=== PATIENT | female | born 1975 | race Caucasian/White ===

== ENCOUNTER 2018-11-28 07:29 | Inpatient (IN) | payer MEDICAID ==
[~2018-11-28] VITALS: Ht 154.9 cm; Wt 51.7 kg
[2018-11-28 07:34] VITALS: BP 146/94
[2018-11-28] MEDS ORDERED: METF500T PO (07:38)
--- NOTE | 2018-11-28 07:40 | NUR ---
Patient ambulated to bed 6. RN evaluating patient at bedside.
[2018-11-28] MEDS ORDERED: NACL 0.9% 1,000 ML IV SCH (08:01)
[2018-11-28] MEDS ORDERED: NACL 0.9% 1,000 ML IV ONE (08:01)
[2018-11-28] MEDS ORDERED: ONDANSETRON 4 MG/2 ML VIAL IVP ONE (08:05)
[2018-11-28] MEDS ORDERED: DICYCLOMINE HCL LIQUID 10 MG/5 ML UDC PO ONE (08:05)
[2018-11-28] MEDS ORDERED: MORPHINE SULFATE 4 MG/ML SYR IVP ONE (08:05)
[2018-11-28] MEDS ORDERED: KETOROLAC 30 MG/ML VIAL IVP ONE (08:05)
[2018-11-28 08:23] LABS: APPEARANCE,URINE CLEAR (CLEAR); BILIRUBIN,URINE NEGATIVE (NEGATIVE); BLOOD, URINE NEGATIVE (NEGATIVE); COLOR,URINE YELLOW (YELLOW); LEUKOCYTE ESTERASE ,URINE NEGATIVE (NEGATIVE); NITRITE, URINE NEGATIVE (NEGATIVE); UGLUCOSE 3+ (NEGATIVE)
[2018-11-28 08:29] LABS: BARBITURATE, URINE NEG. ng/ml (NEG <=200); BENZODIAZEPINE, URINE NEG. ng/mL (NEG <=200); CANNABINOID, URINE NEG. ng/mL (NEG <=50); COCAINE, URINE NEG. ng/mL (NEG <=300); OPIATE, URINE NEG. ng/mL (NEG <=2000); PHENCYCLIDINE SCREEN,URINE NEG. ng/mL (NEG <=25)
--- NOTE | 2018-11-28 08:30 | NUR ---
C/O ABD PAIN SINCE 05:00 THIS MORNING. PT REPORTS LOWER ABD PAIN AT 10/10 THAT RADIATES TO RT LOWER BACK. + N/V. PT APPEARS LETHARGIC AND TIRED. TAKES METFORMIN AT HOME FOR DM. PUT THE PT IN COMFORTABLE POSITION IN BED. SIDE RAILS UPX2. BED AT LOWER POSITION. WILL CONTINUE TO MONITOR PT. MEDHX:DM RX:DENIES
[2018-11-28 08:40] LABS: RBC,URINE 0-5 /HPF (0-5); WBC,URINE 0-5 /HPF (0-5)
--- NOTE | 2018-11-28 08:45 | NUR ---
PT MEDICATED WITH PAIN MEDS. PT HOOKED ON MONITOR. WILL CONTINUE TO MONITOR PT.
[2018-11-28 08:57] LABS: ALBUMIN 3.7 g/dL (3.4-5.0); ANION GAP 16.3 (8-16); CARBON DIOXIDE 25.7 mmol/L (21-32); TOTAL BILIRUBIN 0.5 mg/dL (0.0-1.0)
[2018-11-28 09:02] LABS: HEMATOCRIT 43.7 % (36-48); HEMOGLOBIN 14.6 g/dL (12.0-16.0); MEAN CORPUSCULAR HEMOGLOBIN 27 pg (27-31); MEAN CORPUSCULAR HGB CONC 33 g/dL (33-37); MEAN CORPUSCULAR VOLUME 82.1 fL (80-94); PLATELET COUNT (AUTO) 317 K/uL (140-450); RED BLOOD CELL COUNT(AUTO) 5.32 MIL/uL (4.20-5.40); RED CELL DISTRIBUTION WIDTH 12.8 % (11.6-13.7)
[2018-11-28 09:33] LABS: LYMPHOCYTES % (MANUAL) 6 % (20-46)
--- NOTE | 2018-11-28 10:08 | NUR ---
Dr. Wadsworth evaluating patient at bedside.
--- NOTE | 2018-11-28 10:28 | NUR ---
PT SLEEPING COMFORTABLY IN HER BED. DENIES ANY PAIN AT THIS TIME.
[2018-11-28] MEDS: NACL 0.9% 1,000 ML IV SCH ×2 (10:52→18:49)
[2018-11-28] MEDS ORDERED: ONDANSETRON 4 MG/2 ML VIAL IM/IVP PRN (10:55)
[2018-11-28] MEDS ORDERED: DOCUSATE SODIUM 100 MG GELCAP PO PRN (10:55)
[2018-11-28] MEDS ORDERED: HYDROcodone/APAP 7.5/325 MG 1 TAB PO PRN (10:55)
[2018-11-28] MEDS ORDERED: MORPHINE SULFATE 2 MG/ML SYR IVP PRN (10:55)
[2018-11-28] MEDS ORDERED: DEXTROSE 50% 50 ML SYR IVP PRN ×2 (11:05→12:10)
[2018-11-28] MEDS ORDERED: INSULIN LISPRO SLIDING SCALE 100 UNITS/ML VIAL SUBQ PRN (11:05)
[2018-11-28] MEDS ORDERED: INSULIN REGULAR, HUMAN 100 UNIT/ML VIAL IVP ONE (11:20)
[2018-11-28] MEDS ORDERED: LEVOFLOXACIN 500 MG/D5W PREMIX 100 ML IV ONE (11:20)
[2018-11-28] MEDS ORDERED: BLOOD GLUCOSE MONITORING 1 DEV DEV FS SCH (11:30)
[2018-11-28 12:10] VITALS: BP 106/68
--- NOTE | 2018-11-28 12:10 | NUR ---
Patient will be admitted to care of DR. PIERRE. Admited to [facility] . Will go to room 121 A. Belongings list completed. Report to MARV PUENTE. PT STABLE AT THE TIME OF TRANSFER.
--- NOTE | 2018-11-28 12:10 | NUR ---
PATIENT ARRIVED TO UNIT VIA GURNEY, AMBULATED TO BED WITH STEADY GAIT BUT IS WEAK FROM PAIN. IV INFUSION RUNNING WELL TO LEFT AC 22 GAUGE. PATIENT STATES PAIN IS TOLERABLE AND THAT IT ONLY HURTS WHEN SHE MOVES. ORIENTED PATIENT TO UNIT AND FLOOR. CALL LIGHT IN REACH. PATIENT VITALS STABLE ON RA. NO SIGNS OF DISTRESS .SAFETY PRECAUTIONS IN PLACE .WILL CONTINUE TO MONITOR.
[2018-11-28] MEDS ORDERED: KETOROLAC 15 MG/ML VIAL IVP PRN (12:15)
[2018-11-28 12:56] LABS: PROTHROMBIN TIME 9.9 secs (10.8-13.4)
[2018-11-28 13:16] LABS: CHOL/HDL RATIO 4.2 (1-4.5); MAGNESIUM 1.9 mg/dL (1.8-2.4); PHOSPHORUS 3.7 mg/dL (2.5-4.9); THYROID STIMULATING HORMONE 0.98 uIU/mL (0.34-3.74)
[2018-11-28] MEDS ORDERED: POTASSIUM CHLORIDE 40 MEQ, LIDOCAINE MPF 1% - 5 mL VIAL 25 MG in NACL 0.9% 250 ML IV SCH (14:00)
[2018-11-28] MEDS: INSULIN LISPRO SLIDING SCALE 100 UNITS/ML VIAL SUBQ PRN ×3 (14:04→21:02)
--- NOTE | 2018-11-28 14:06 | NUR ---
ADMINISTERED SCHEDULED MEDICATIONS, BUT HELD HUMULIN R IVP WHICH WE DO NOT CARRY ON THE FLOOR. DOCTOR AWARE. PER DR. PEOPLES. RECHECK GLUCOSE AND COVER WITH SLIDING SCALE HUMALOG SQ. ADMINISTERED 8 UNITS OF HUMALOG FOR GLUCOSE OF 339. PATIENT TOLERATED WELL. IV INFUSING WELL TO LEFT AC.
--- NOTE | 2018-11-28 14:38 | NUR ---
ADMINISTERED SCHEDULED MEDICATIONS. PATIENT TOLERATING WELL.
[2018-11-28 15:06] LABS: ANION GAP 13.9 (8-16); CARBON DIOXIDE 26.5 mmol/L (21-32); POTASSIUM 3.4 mmol/L (3.5-5.1)
[2018-11-28] MEDS: BLOOD GLUCOSE MONITORING 1 DEV DEV FS SCH ×2 (16:30→20:57)
--- NOTE | 2018-11-28 16:40 | NUR ---
VITALS STABLE, PATIENT RESTING, NO C/O PAIN AT THIS TIME. WILL CONTINUE TO MONITOR.
[2018-11-28 18:00] VITALS: BP 115/83
[2018-11-28] MEDS: ACETAMINOPHEN 325 MG TAB PO PRN (18:09)
[2018-11-28] MEDS: KETOROLAC 15 MG/ML VIAL IM SCH (18:09)
--- NOTE | 2018-11-28 18:09 | NUR ---
ADMINISTERED PRN ZOFRAN 4MG IV, FOR C/O NAUSEA, TYLENOL 650MG PO FOR FEVER OF 100.4 F AN C/O HEADACHE 09/21, AND TORADOL 15MG IV FOR C/O FLANK PAIN 10/22. PATIENT HAS CHILLS. EDUCATED PATIENT THAT CHILLS WILL SUBSIDE ONCE FEVER IS REDUCED.
--- NOTE | 2018-11-28 19:09 | NUR ---
PAIN, FEVER, CHILLS AND NAUSEA HAVE ALL SUBSIDED. PATIENT COMFORTABLE, RESTING IN BED. FAMILY AT BEDSIDE.
--- NOTE | 2018-11-28 19:29 | NUR ---
GAVE REPORT TO WARP HANGER RNALLI. PATIENT IN STABLE CONDITION.
--- NOTE | 2018-11-28 19:30 | NUR ---
RECIEVED PT AAOX4 NID , WITH BEARABLE PAIN AT THIS TIME , IV SITE INTACT AND PATENT , PLAN OF CARE DISCUSSED AND VERBALIZE UNDERSTANDING , CALL LIGHT WITHIN RFEACH , BED I N LOW POSITION , SIDERAILS UPX2 ,REALTIVES TA BEDSIDE.
--- NOTE | 2018-11-28 22:00 | NUR ---
MADE ROUNDS , RESPIRATION EVEN AND UNLABORED , NO FURTHER COMPLAIN MADE AT THIS TIME , CALL LIGHT WITHIN REACH .WILL CONT. TO MONITOR.
--- NOTE | 2018-11-29 | NUR ---
MADE ROUNDS , RESPIRATION EVEN AND UNLABORED , NO COMPLAIN MADE AT THIS TIME , CALL LIGHT WITHIN REACH , WILL CONT. TO MONITOR.
[2018-11-29] MEDS: NACL 0.9% 1,000 ML IV SCH ×4 (00:41→23:42)
[2018-11-29 00:59] VITALS: BP 128/69
[2018-11-29] MEDS: KETOROLAC 15 MG/ML VIAL IM SCH ×2 (03:24→09:11)
--- NOTE | 2018-11-29 04:00 | NUR ---
MADE ROUNDS . V/S WNL , RESPIRATION EVEN AND UNLABORED , NO COMPLAIN MADE AT THIS TIME , CALL LIGHT WITHIN RAECH . WILL CONT. TO MONITOR.
[2018-11-29 04:14] VITALS: BP 130/70
[2018-11-29 06:07] LABS: T4 (THYROXINE) 10.2 ug/dL (4.5-12.0)
[2018-11-29] MEDS: BLOOD GLUCOSE MONITORING 1 DEV DEV FS SCH ×4 (06:46→20:37)
[2018-11-29] MEDS: INSULIN LISPRO SLIDING SCALE 100 UNITS/ML VIAL SUBQ PRN ×3 (06:51→17:50)
[2018-11-29 06:54] LABS: ANION GAP 14.5 (8-16); CARBON DIOXIDE 22.2 mmol/L (21-32); CREATININE 0.8 mg/dL (0.6-1.3); POTASSIUM 3.7 mmol/L (3.5-5.1)
[2018-11-29 07:06] LABS: MAGNESIUM 1.7 mg/dL (1.8-2.4); PHOSPHORUS 2.5 mg/dL (2.5-4.9)
--- NOTE | 2018-11-29 07:11 | NUR ---
ENDORSED TO AM SHIFT NURSE WITH STABLE CONDITION
--- NOTE | 2018-11-29 07:12 | NUR ---
RECEIVED REPORT FROM SUPERINTENDENT CEMETERY RN, ALLI. PATIENT IS SLEEPING. VISIBLE CHEST RISE AND NO SIGNS OF DISTRESS ON RA. IV INFUSING TO LEFT AC 20 GAUGE CATHETER. BED LOW, CALL LIGHT IN REACH. WILL CONTINUE TO MONITOR.
[2018-11-29 07:27] LABS: HEMATOCRIT 32.7 % (36-48); MEAN CORPUSCULAR HEMOGLOBIN 27 pg (27-31); MEAN CORPUSCULAR HGB CONC 33 g/dL (33-37); MEAN CORPUSCULAR VOLUME 82.2 fL (80-94); PLATELET COUNT (AUTO) 226 K/uL (140-450); RED BLOOD CELL COUNT(AUTO) 3.98 MIL/uL (4.20-5.40); RED CELL DISTRIBUTION WIDTH 12.7 % (11.6-13.7); WHITE BLOOD COUNT (AUTO) 18.1 K/uL (4.8-10.8)
[2018-11-29 08:00] VITALS: BP 87/59
--- NOTE | 2018-11-29 08:27 | NUR ---
BP SLIGHTLY LOW 87/58 BUT PATIENT DENIES DIZZINESS, LIGHTHEADEDNESS OR HEADACHE. EDUCATED PATIENT TO SIT AT EDGE OF BED BEFORE AMBULATING AND TO CALL ME IF SHE EXPERIENCES ANY DIZZINESS OR LIGHTHEADEDNESS. PATIENT VERBALIZED UNDERSTANDING. ALL OTHER VITALS ARE WNL. REVIEWED MORNING MEDICATIONS INCLUDING IM TORADOL. PATIENT DOES HAVE MILD 3/10 LOWER ABD PAIN, BUT DOES NOT WANT THE IM TORADOL. WILL GIVE THE PRN IV TORADOL AND INFORM DOCTOR OF PATIENT PREFERENCE.
--- NOTE | 2018-11-29 09:03 | NUR ---
PATIENT HAS BEEN SCREENED AND CATEGORIZED MODERATE NUTRITION RISK. PATIENT WILL BE SEEN WITHIN 3-5 DAYS OF ADMISSION. 12/01/18 12/03/[address]
[2018-11-29] MEDS: ASPIRIN 81 MG TAB.CHEW PO SCH (09:10)
[2018-11-29] MEDS: LEVOFLOXACIN 750 MG/D5W PREMIX 150 ML IV SCH (09:10)
[2018-11-29] MEDS: ATORVASTATIN 20 MG TAB PO SCH (09:10)
--- NOTE | 2018-11-29 09:22 | NUR ---
ADMINISTERED SCHEDULED MEDICATIONS. PATIENT TOLERATED WELL. NO SIGNS OF DISTRESS ON RA. SAFETY PRECAUTIONS IN PLACE. CALL LIGHT IN REACH. PATIENT HAS PAIN 4/10 BUT DID NOT WANT SCHEDULED IM TORADOL. GAVE PRN IV TORADOL, BOTH ON ORDER.
[2018-11-29 09:46] LABS: HEMOGLOBIN 10.8 g/dL (12.0-16.0)
[2018-11-29 09:48] LABS: EOSINOPHILS % (MANUAL) 1 % (0-4); LYMPHOCYTES % (MANUAL) 7 % (20-46); MONOCYTES % (MANUAL) 5 % (5-12)
[2018-11-29] MEDS ORDERED: metFORMIN 500 MG TAB PO SCH ×2 (10:08→21:00)
[2018-11-29] MEDS ORDERED: MAGNESIUM OXIDE 400 MG TAB PO SCH (10:08)
--- NOTE | 2018-11-29 11:30 | NUR ---
PATIENT RESTING IN BED, NO SIGNS OF DISTRESS ON RA. NO C/O PAIN, ALL NEEDS MET AT THIS TIME.
--- NOTE | 2018-11-29 13:28 | NUR ---
ADMINISTERED 6 UNITS HUMALOG FOR GLUCOSE OF 260. PATIENT WAS PREVIOUSLY NPO FOR LUNCH DUE TO A PENDING ULTRASOUND. ULTRASOUND HAS FINISHED. PATIENT EATING LUNCH. INSULIN COVERAGE GIVEN. ALSO ADMINISTERED METFORMIN 500MG PO AND MAX OXIDE 800 MG PO. PATIENT TOLERATED ALL MEDICAITONS WILL. EATING LUNCH. NO SIGNS OF DISTRESS. WILL CONTINUE TO MONITOR.
--- NOTE | 2018-11-29 15:15 | NUR ---
PATIENT RESTING IN BED. NO C/O PAIN, ALL NEEDS MET AND SAFETY PRECAUTIONS IN PLACE.
[2018-11-29] MEDS: ACETAMINOPHEN 325 MG TAB PO PRN (17:46)
--- NOTE | 2018-11-29 17:50 | NUR ---
GAVE 2 UNITS FOR GLUCOSE OF 174. ALSO GAVE TYLENOL 650MG FOR GARCIA AND SLIGHT FEVER 99.9 F.
--- NOTE | 2018-11-29 19:29 | NUR ---
GAVE BEDSIDE REPORT TO CITY LETTER CARRIER RN. PATIENT IN STABLE CONDITION.
--- NOTE | 2018-11-29 19:30 | NUR ---
RECEIVED BEDSIDE REPORT FROM DAY SHIFT NURSE. PATIENT IS AWAKE, ALERT, AND COOPERATIVE. RESPIRATION EVEN UNLABORED ON ROOM AIR. NO DISTRESS NOTED. SKIN IS WARM AND DRY. IV PATENT AND INTACT. DENIES PAIN. ALL SAFETY MEASURES IN PLACE. PLAN OF CARE WAS DISCUSSED. CALL LIGHT WITHIN REACH AND VERBALIZES ITS USE. WILL CONTINUE TO MONITOR.
--- NOTE | 2018-11-29 20:00 | NUR ---
INITIAL ASSESSMENT DONE. VITALS WERE TAKEN. PATIENT IN CONDITION STABLE. NO DISTRESS NOTED. WILL CONTINUE TO MONITOR.
--- NOTE | 2018-11-29 21:00 | NUR ---
ALL SCHEDULED MEDS WERE GIVE PER ORDER. NO ASE NOTED. WILL CONTINUE TO MONITOR.
--- NOTE | 2018-11-29 22:00 | NUR ---
PATIENT IN BED TALKING ON THE PHONE. RESPIRATION EVEN UNLABORED ON ROOM AIR. NO DISTRESS NOTED. WILL CONTINUE TO MONITOR.
[2018-11-30] VITALS: BP 111/67
--- NOTE | 2018-11-30 | NUR ---
VITALS WERE TAKEN. PATIENT IN STABLE CONDITION. NO DISTRESS NOTED. WILL CONTINUE TO MONITOR.
--- NOTE | 2018-11-30 02:00 | NUR ---
PATIENT IV INFILTRATED NO ACTIVE BLEEDING SEEN. CANNULA INTACT. NEW IV INSERTED 22G. WILL CONTINUE TO MONITOR.
--- NOTE | 2018-11-30 04:00 | NUR ---
CHECKED PATIENT. PATIENT SLEEPING RESPIRATION EVEN UNLABORED ON ROOM AIR. NO DISTRESS NOTED, WILL CONTINUE TO MONITOR.
[2018-11-30 06:15] LABS: BASOPHILS % (AUTO) 0.2 % (0.0-2.0); EOSINOPHILS # (AUTO) 0.1 K/uL (0-0.4); EOSINOPHILS % (AUTO) 0.9 % (0.0-4.0); HEMATOCRIT 32.2 % (36-48); HEMOGLOBIN 10.8 g/dL (12.0-16.0); LYMPHOCYTES # (AUTO) 1.3 K/uL (2.5-16.5); LYMPHOCYTES % (AUTO) 9.4 % (20.5-51.1); MEAN CORPUSCULAR HEMOGLOBIN 27 pg (27-31); MEAN CORPUSCULAR HGB CONC 33 g/dL (33-37); MEAN CORPUSCULAR VOLUME 81.8 fL (80-94); MONOCYTES # (AUTO) 0.8 K/uL (0.8-1.0); MONOCYTES % (AUTO) 5.8 % (1.7-9.3); NEUTROPHILS # (AUTO) 11.6 K/uL (1.8-7.7); NEUTROPHILS % (AUTO) 83.7 % (42.2-75.2); PLATELET COUNT (AUTO) 213 K/uL (140-450); RED BLOOD CELL COUNT(AUTO) 3.94 MIL/uL (4.20-5.40); RED CELL DISTRIBUTION WIDTH 12.8 % (11.6-13.7); WHITE BLOOD COUNT (AUTO) 13.8 K/uL (4.8-10.8)
[2018-11-30] MEDS: INSULIN LISPRO SLIDING SCALE 100 UNITS/ML VIAL SUBQ PRN ×4 (06:24→21:05)
[2018-11-30] MEDS: BLOOD GLUCOSE MONITORING 1 DEV DEV FS SCH ×4 (06:26→20:51)
[2018-11-30 06:32] LABS: ANION GAP 10.8 (8-16); CREATININE 0.8 mg/dL (0.6-1.3); POTASSIUM 3.8 mmol/L (3.5-5.1)
--- NOTE | 2018-11-30 07:14 | NUR ---
ENDORSED PATIENT TO DAY SHIFT NURSE FOR CONTINUITY OF CARE. PATIENT IN STABLE CONDITION.
--- NOTE | 2018-11-30 07:16 | NUR ---
RECEIVED BEDSIDE REPORT FROM TOOL AND DIE REPAIRER NURSE. PATIENT IS SLEEPING ON BED AT THIS TIME. RESPIRATION EVEN AND UNLABORED ON RA. DENIED PAIN AND SOB. NO SIGNS OF DISTRESS NOTED. IV ON R HAND 22G, CLEAN AND DRY, INFUSING PER MD ORDER. SKIN INTACT AND CLEAN. PATIENT IS AMBULATE AND CONTINENT. SAFETY MEASURES IN PLACE. BED ON LOW POSITION AND CALL LIGHT WITHIN REACH.
[2018-11-30 08:00] VITALS: BP 130/75
[2018-11-30] MEDS: ATORVASTATIN 20 MG TAB PO SCH (08:11)
[2018-11-30] MEDS: metFORMIN 500 MG TAB PO SCH ×2 (08:12→17:21)
[2018-11-30] MEDS: ASPIRIN 81 MG TAB.CHEW PO SCH (08:12)
[2018-11-30] MEDS: LEVOFLOXACIN 750 MG/D5W PREMIX 150 ML IV SCH (09:02)
[2018-11-30] MEDS: NACL 0.9% 1,000 ML IV SCH ×2 (09:06→18:37)
--- NOTE | 2018-11-30 09:33 | NUR ---
PATIENT AWAKE AND TALKING ON HER PHONE AT THIS TIME. DENIED PAIN. NO SIGNS OF DISTRESS NOTED. SAFETY MEASURES IN PLACE. BED IN LOW POSITION AND CALL LIGHT WITHIN REACH. INSTRUCTED PATIENT TO USE THE CALL LIGHT FOR ANY ASSISTANCE AND PATIENT WAS AWARE.
--- NOTE | 2018-11-30 11:14 | NUR ---
PATIENT AWAKE AND RESTING ON BED AT THIS TIME. DENIED PAIN. RESPIRATION EVEN AND UNLABORED ON RA. NO SIGNS OF DISTRESS NOTED. SAFETY MEASURES IN PLACE. BED IN LOW POSITION AND CALL LIGHT WITHIN REACH. INSTRUCTED PATIENT TO USE THE CALL LIGHT FOR ANY ASSISTANCE AND PATIENT WAS AWARE.
--- NOTE | 2018-11-30 13:40 | NUR ---
PATIENT AWAKE AND TALKING ON HER PHONE AT THIS TIME. DENIED PAIN. RESPIRATION EVEN AND UNLABORED ON RA. NO SIGNS OF DISTRESS NOTED. SAFETY MEASURES IN PLACE. BED IN LOW POSITION AND CALL LIGHT WITHIN REACH. INSTRUCTED PATIENT TO USE THE CALL LIGHT FOR ANY ASSISTANCE AND PATIENT WAS AWARE.
--- NOTE | 2018-11-30 15:25 | NUR ---
PATIENT IS RESTING ON BED AT THIS TIME. NO SIGNS OF DISTRESS NOTED. SAFETY MEASURES IN PLACE. BED IN LOW POSITION AND CALL LIGHT WITHIN REACH. INSTRUCTED PATIENT TO USE THE CALL LIGHT FOR ANY ASSISTANCE AND PATIENT WAS AWARE.
[2018-11-30 16:00] VITALS: BP 134/72
--- NOTE | 2018-11-30 17:40 | NUR ---
PATIENT AWAKE AND WATCHING TV ON BED AT THIS TIME. DENIED PAIN. NO SIGNS OF DISTRESS NOTED. SAFETY MEASURES IN PLACE. BED IN LOW POSITION AND CALL LIGHT WITHIN REACH. INSTRUCTED PATIENT TO USE THE CALL LIGHT FOR ANY ASSISTANCE AND PATIENT WAS AWARE.
--- NOTE | 2018-11-30 19:15 | NUR ---
RECEIVED BEDSIDE REPORT FROM DAY SHIFT NURSE. PATIENT IS SLEEPING AROUSABLE BY NAME. RESPIRATION EVEN UNLABORED ON ROOM AIR. NO DISTRESS NOTED. SKIN IS WARM AND DRY. IV PATENT AND INTACT. PLAN OF CARE WAS DISCUSSED. ALL SAFETY MEASURES IN PLACE. CALL LIGHT WITHIN REACH AND VERBALIZES ITS USE. WILL CONTINUE TO MONITOR.
--- NOTE | 2018-11-30 19:19 | NUR ---
ENDORSED PATIENT AT BEDSIDE TO CORRECTIONAL TREATMENT SPECIALIST NURSE FOR CONTINUITY OF CARE. PATIENT IS IN STABLE CONDITION. NO SIGNS OF DISTRESS NOTED. SAFETY MEASURES IN PLACE. BED IN LOW POSITION AND CALL LIGHT WITHIN REACH.
--- NOTE | 2018-11-30 20:00 | NUR ---
INITIAL ASSESSMENT DONE. VITALS WERE TAKEN. NO DISTRESS NOTED. PATIENT IN STABLE CONDITION. WILL CONTINUE TO MONITOR.
--- NOTE | 2018-11-30 21:00 | NUR ---
ALL SCHEDULED MEDS WERE GIVEN PER ORDER. NO ASE NOTED.WILL CONTINUE TO MONITOR. FAMILY AT BEDSIDE
--- NOTE | 2018-11-30 22:31 | NUR ---
PATIENT IN BED TALKING ON THE PHONE. NO DISTRESS NOTED. WILL CONTINUE TO MONITOR.
[2018-12-01] VITALS: BP 143/77
--- NOTE | 2018-12-01 | NUR ---
VITALS WERE TAKEN. NO DISTRESS NOTED. DENIES PAIN. PATIENT IN STABLE CONDITION. WILL CONTINUE TO MONITOR.
--- NOTE | 2018-12-01 02:00 | NUR ---
CHECKED PATIENT. PATIENT SLEEPING RESPIRATION EVEN UNLABORED ON ROOM AIR. NO DISTRESS NOTED. WILL CONTINUE TO MONITOR.
[2018-12-01] MEDS: NACL 0.9% 1,000 ML IV SCH ×2 (02:22→10:25)
--- NOTE | 2018-12-01 04:00 | NUR ---
CHECKED PATIENT. PATIENT SLEEPING RESPIRATION EVEN UNLABORED ON ROOM AIR. NO DISTRESS NOTED, WILL CONTINUE TO MONITOR.
[2018-12-01] MEDS: BLOOD GLUCOSE MONITORING 1 DEV DEV FS SCH ×2 (06:30→11:40)
[2018-12-01 07:26] LABS: BASOPHILS % (AUTO) 0.2 % (0.0-2.0); EOSINOPHILS # (AUTO) 0.2 K/uL (0-0.4); EOSINOPHILS % (AUTO) 2.4 % (0.0-4.0); HEMATOCRIT 32.3 % (36-48); HEMOGLOBIN 10.8 g/dL (12.0-16.0); LYMPHOCYTES # (AUTO) 1.6 K/uL (2.5-16.5); LYMPHOCYTES % (AUTO) 17.2 % (20.5-51.1); MEAN CORPUSCULAR HEMOGLOBIN 27 pg (27-31); MEAN CORPUSCULAR HGB CONC 34 g/dL (33-37); MEAN CORPUSCULAR VOLUME 81.5 fL (80-94); MONOCYTES # (AUTO) 0.7 K/uL (0.8-1.0); MONOCYTES % (AUTO) 6.9 % (1.7-9.3); NEUTROPHILS % (AUTO) 73.3 % (42.2-75.2); PLATELET COUNT (AUTO) 241 K/uL (140-450); RED BLOOD CELL COUNT(AUTO) 3.96 MIL/uL (4.20-5.40); RED CELL DISTRIBUTION WIDTH 12.8 % (11.6-13.7); WHITE BLOOD COUNT (AUTO) 9.6 K/uL (4.8-10.8)
--- NOTE | 2018-12-01 07:27 | NUR ---
ENDORSED PATIENT TO DAY SHIFT NURSE FOR CONTINUITY OF CARE. PATIENT IN STABLE CONDITION.
[2018-12-01 07:35] LABS: CARBON DIOXIDE 24.6 mmol/L (21-32); CREATININE 0.6 mg/dL (0.6-1.3); POTASSIUM 3.6 mmol/L (3.5-5.1)
[2018-12-01 08:00] VITALS: BP 134/83
--- NOTE | 2018-12-01 08:20 | NUR ---
RECEIVED BEDSIDE REPORT FROM MARV WILLINGHAM. PT STABLE, SLEEPING, BUT EASILY AROUSABLE. NO SIGNS OF DISTRESS NOTED. DENIES PAIN OR SOB. NO REDNESS, SWELLING, OR INFLAMMATION NOTED ON IV SITE. CALL SAGE WITHIN REACH. BED IN LOWEST POSITION. SAFETY MEASURES IN PLACE. PLAN OF CARE REVIEWED. Addendum: 12/01/18 at 0900 by Myriam Goldsmith RN THIS DOCUMENTATION WAS DONE AT 0726 ON 12/01/18.
[2018-12-01] MEDS: metFORMIN 500 MG TAB PO SCH (08:55)
[2018-12-01] MEDS: ASPIRIN 81 MG TAB.CHEW PO SCH (08:55)
[2018-12-01] MEDS: ATORVASTATIN 20 MG TAB PO SCH (08:56)
[2018-12-01] MEDS: LEVOFLOXACIN 750 MG/D5W PREMIX 150 ML IV SCH (08:56)
--- NOTE | 2018-12-01 08:57 | NUR ---
ADMINISTERED SCHEDULED MEDICATIONS, PT TOLERATED WELL. NO OTHER NEEDS AT THIS TIME.
[2018-12-01] MEDS ORDERED: METF1000 PO (09:02)
[2018-12-01] MEDS ORDERED: LEVO750T2 PO (09:02)
[2018-12-01] MEDS ORDERED: ASPI-1677 PO (09:03)
[2018-12-01] MEDS ORDERED: ATOR10TA PO (09:08)
[2018-12-01] MEDS ORDERED: IBUP-2213 PO (09:10)
--- NOTE | 2018-12-01 10:20 | NUR ---
PT STABLE, RESTING IN BED. NO OTHER NEEDS AT THIS TIME.
[2018-12-01] MEDS: INSULIN LISPRO SLIDING SCALE 100 UNITS/ML VIAL SUBQ PRN (11:37)
--- NOTE | 2018-12-01 11:41 | NUR ---
ADMINISTERED 2 UNITS HUMALOG FOR BG OF 200. PT TOLERATED WELL.
--- NOTE | 2018-12-01 13:30 | NUR ---
PT STABLE, RESTING IN BED. NO OTHER NEEDS AT THIS TIME.
--- NOTE | 2018-12-01 15:35 | NUR ---
D/C INSTRUCTIONS, PAPERWORK, AND PRESCRIPTION GIVEN, PT VERBALIZED UNDERSTANDING. QUESTIONS AND CONCERNS WERE ADDRESSED. D/C IV, CATHETER TIP INTACT, BLEEDING CONTROLLED. PT STABLE, COMMUNICATES APPROPRIATELY WITH STAFF, AMBULATES WITH STEADY GAIT. SKIN INTACT, VACCINES N/A. PT TOOK ALL OF BELONGINGS HOME. PT PICKED UP BY SISTER. ESCORTED PT AND FAMILY TO THE LOBBY. PT WILL BE GOING BACK HOME.
== END 2018-12-01 15:35 | disposition home or self-care (01) | DRG 720 ==
LOC: MED 07:29 → MTU 11:21
PROVIDERS: ADMIT General Practice; ATTEND General Practice
DX: A41.9 Sepsis, unspecified organism (principal); E11.51 Type 2 diabetes mellitus with diabetic peripheral angiopathy without gangrene; E11.69 Type 2 diabetes mellitus with other specified complication; E83.42 Hypomagnesemia; E87.6 Hypokalemia; Z88.0 Allergy status to penicillin; Z83.3 Family history of diabetes mellitus; Z82.49 Family history of ischemic heart disease and other diseases of the circulatory system; N13.6 Pyonephrosis; Z98.891 History of uterine scar from previous surgery; E78.2 Mixed hyperlipidemia; Z86.73 Personal history of transient ischemic attack (TIA), and cerebral infarction without residual deficits
CPT/HCPCS: 36415; 36600; 71045; 76770; 80048; 80053; 80305; 81001; 81025; 82140; 82150; 82550; 82803; 82948; 83036; 83605; 83615; 83690; 83735; 83880; 84100; 84436; 84443; 84484; 85025; 85610; 85730; 87040; 87081; 87086; 93005; 93925; 93970; 96361; 96374; 96375; 99285; J1815; J1885; J1956; J2001; J2270; J2405; J3480; J7030; Q0092